=== PATIENT | female | born 1945 | race Caucasian/White ===

== ENCOUNTER → 2019-03-28 | Day surgery (SDC) | payer MEDICARE, OTHER ==
[~2019-03-28] MED LIST: Lactated Ringers 1,000 ML IV SCH; Propofol 200 MG/20 ML SDV IV ONE
[2019-03-28 08:50] VITALS: BP 140/56
--- NOTE | 2019-03-28 14:21 | OR ---
DATE OF OPERATION: 03/28/2019 PREOPERATIVE DIAGNOSIS: GASTROESOPHAGEAL REFLUX DISEASE WITH DYSPEPSIA. POSTOPERATIVE DIAGNOSIS: GASTROESOPHAGEAL REFLUX DISEASE WITH DYSPEPSIA. SURGEON: Aquilino Corrales MD PROCEDURE: EGD WITH JOHN. ANESTHESIA: MAC via [employer]. COMPLICATIONS: None. SPECIMEN: Antral JOHN findings. FINDINGS: 1. Full-length EGD. 2. Minimal spontaneous GERD without esophagitis. RECOMMENDATIONS: Medical followup with Renee Eaton. INDICATIONS: The patient in the past apparently has had a history of gastritis. She has been having some worsening reflux and belching with minimal improvement with Protonix. She was sent for a diagnostic EGD. DESCRIPTION OF PROCEDURE: The patient was prepped and draped, placed in the left lateral decubitus position. A lubricated Olympus gastroscope was inserted over a bit and advanced to cricopharyngeus area and easily intubated into the esophagus. The esophageal lining was benign in its entire course. The Z-line was crisp and sharp at 38 cm. No significant hernia seen. The scope was left in place for sometime and there was minimal spontaneous reflux. There were no signs of distal esophagitis, stricturing, ulceration, or Oliva's changes. The scope was advanced into the stomach through the pylorus into the second portion of the duodenum. This and the duodenal bulb were completely benign. The scope was brought back into the stomach and retroflexed. The upper fundus and cardia were unremarkable. Upon straightening, the rest of the gastric lining showed no signs of any polyps, mass, ulceration, peptic ulcer disease, or otherwise. No signs of gastritis. There was essentially unremarkable evaluation. CLOtest was obtained. Air was then suctioned and the scope removed without complication. FRED/KURTIS /[id number]
== END ==
LOC: CC.SDS 06:52
PROVIDERS: ATTEND Family Medicine
DX: K21.9 Gastro-esophageal reflux disease without esophagitis (principal); Z87.19 Personal history of other diseases of the digestive system
CPT/HCPCS: 87081; J2704; J7120